=== PATIENT | female | born 1945 | race Hispanic/Latino ===

== ENCOUNTER 2025-03-27 22:37 | Emergency (ER) | payer MEDICARE ==
[~2025-03-27] VITALS: Ht 162.6 cm; Wt 63.5 kg
[2025-03-27] MEDS ORDERED: SODIUM CHLORIDE 0.9% 1000ML 1,000 ML IV STA (23:18)
[2025-03-27] MEDS: METOPROLOL TARTRATE INJ 1 MG/ML VIAL IV SCH (23:53)
[2025-03-28 01:47] VITALS: PULSE 129; RESP 16; TEMP 97.6
[2025-03-28 01:59] VITALS: BP 156/99; PULSE 129; RESP 16; TEMP 98; O2SAT 99
[2025-03-31] MEDS ORDERED: REFRESH PLUS1 EACH (08:46)
[2025-03-31] MEDS ORDERED: SYSTANE COMPLE1.5 ML (08:46)
[2025-03-31] MEDS ORDERED: METFORMIN HCL500 MG PO (08:46)
[2025-03-31] MEDS ORDERED: DIGOXIN125 MCG PO (08:46)
[2025-03-31] MEDS ORDERED: ELIQUIS5 MG PO (08:46)
[2025-03-31] MEDS ORDERED: MAGNESIUM250 M2 PO (08:46)
[2025-03-31] MEDS ORDERED: METOPROLOL SUCC50 MG PO (08:46)
== END 2025-03-28 02:02 | disposition home or self-care (01) ==
LOC: FSED 22:41
DX: I48.92 Unspecified atrial flutter (principal); Z79.01 Long term (current) use of anticoagulants; R00.0 Tachycardia, unspecified; I48.91 Unspecified atrial fibrillation; E11.9 Type 2 diabetes mellitus without complications; I10 Essential (primary) hypertension
CPT/HCPCS: 71045; 80053; 81003; 83880; 84484; 85025; 93005 ×2; 96374; 96375; 96376; 99284; J7030

== ENCOUNTER 2025-04-04 08:09 | Inpatient (IN) | payer MEDICARE ==
[~2025-04-04] VITALS: Ht 162.6 cm; Wt 70.8 kg
[2025-04-04] VITALS (7 sets, daily range): BP systolic 117–158; BP diastolic 87–112; PULSE 72–147; RESP 16–23; TEMP 97.8; O2SAT 99–100
[~2025-04-04 08:09] MED LIST: DIGOXIN125 MCG PO; ELIQUIS5 MG PO; MAGNESIUM250 M2 PO; METFORMIN HCL500 MG PO; METOPROLOL SUCC50 MG PO; REFRESH PLUS1 EACH; SYSTANE COMPLE1.5 ML
[2025-04-04 08:44] LABS: BASOPHILS % 0.6 % (0.0-1.0); EOSINOPHILS % 0.8 % (0.0-6.0); LYMPHOCYTES % 19.2 % (18.0-39.1); MONOCYTES % 7.7 % (4.4-11.3); NEUTROPHILS % 71.5 % (38.7-80.0); RED CELL DISTRIBUTION WIDTH 13.6 % (11.7-14.4)
[2025-04-04] MEDS: SODIUM CHLORIDE 0.9% 500ML 500 ML IV ONE (08:51)
[2025-04-04] MEDS: DILTIAZEM HCL 5 MG/ML 5 ML VIAL IV STA (08:51)
[2025-04-04 08:58] LABS: INR 1.11
[2025-04-04 09:40] LABS: EST GLOMERULAR FILTRATION RATE 89.0 ML/MIN (>=60)
[2025-04-04] MEDS: DIGOXIN INJ 0.25 MG/ML 2 ML AMP IV ONE ×2 (12:03→13:55)
[2025-04-04] MEDS: MUPIROCIN 2% OINT 22 GM TUBE TOP SCH (19:41)
[2025-04-04] MEDS ORDERED: TEMAZEPAM 7.5 MG CAP PO PRN (19:45)
[2025-04-04] MEDS ORDERED: ONDANSETRON HCL INJ 2MG/ML 2ML 2 MG/ML VIAL IV PRN (19:45)
[2025-04-04] MEDS: ENOXAPARIN SOD INJ 60 MG/0.6 ML SYR SC SCH (20:54)
[2025-04-04] MEDS: METOPROLOL SUCCINATE 25 MG TAB XL PO SCH (22:02)
[2025-04-04] MEDS ORDERED: AMIODARONE 900MG 900 MG in Premix Bag 1 BAG IV ONE (23:15)
[2025-04-04] MEDS ORDERED: AMIODARONE HCL 150 MG/100 ML BAG IV ONE (23:15)
[2025-04-05] VITALS (60 sets, daily range): BP systolic 89–168; BP diastolic 45–127; PULSE 70–145; RESP 12–34; TEMP 97.6–97.9; O2SAT 85–100
[2025-04-05] MEDS: METOPROLOL TARTRATE INJ 1 MG/ML VIAL IV ONE ×2 (00:31→00:32)
[2025-04-05] MEDS: METOPROLOL TARTRATE INJ 1 MG/ML VIAL ONE (00:32)
[2025-04-05 05:17] LABS: BASOPHILS % 0.6 % (0.0-1.0); EOSINOPHILS % 1.2 % (0.0-6.0); LYMPHOCYTES % 23.4 % (18.0-39.1); MONOCYTES % 7.3 % (4.4-11.3); NEUTROPHILS % 67.3 % (38.7-80.0); RED CELL DISTRIBUTION WIDTH 13.4 % (11.7-14.4)
[2025-04-05 05:51] LABS: EST GLOMERULAR FILTRATION RATE 94.0 ML/MIN (>=60)
[2025-04-05 08:08] LABS: CHOL/HDL RATIO 2.1 (3.0-3.6); LDL CHOLESTEROL 61.0 MG/DL (60-130)
[2025-04-05] MEDS: METFORMIN HCL 500 MG TAB PO SCH (09:16)
[2025-04-05] MEDS ORDERED: CEFAZOLIN SODIUM 2 GM in SODIUM CHLORIDE 0.9% 100 ML IV PRN (15:00)
[2025-04-05] MEDS: ONDANSETRON HCL INJ 2MG/ML 2ML 2 MG/ML VIAL ONE (18:17)
[2025-04-05] MEDS: SODIUM CHLORIDE 0.9% 1000ML 2,000 ML ONE (18:18)
[2025-04-05] MEDS: Vancomycin IV 1 GM VIAL ONE (18:19)
[2025-04-05] MEDS: SODIUM BICARBONATE 8.4% SYRING 50 ML ONE (18:19)
[2025-04-05] MEDS: LIDOCAINE HCL 2% LOCAL 20 ML VIAL ONE (18:19)
[2025-04-05] MEDS: IOPAMIDOL 610MG/1ML 300 MG/ML VIAL IV ONE (18:19)
[2025-04-05] MEDS: SODIUM CHLORIDE 0.9% 100 ML ONE (18:20)
[2025-04-05] MEDS: CEFAZOLIN SODIUM 2 GM ONE (18:20)
[2025-04-05] MEDS: SODIUM CHLORIDE 0.9% 250ML 250 ML ONE (18:20)
[2025-04-05] MEDS: GENTAMICIN SULFATE 40 MG/ML 2 ML VIAL ONE (18:34)
[2025-04-05] MEDS: SODIUM CHLORIDE 0.9% 500ML 500 ML ONE (18:34)
[2025-04-05] MEDS: FENTANYL CITRATE/PF 100MCG/2 ML INJ ONE (18:34)
[2025-04-05] MEDS: MIDAZOLAM HCL 2 MG/2 ML VIAL ONE (18:35)
[2025-04-05] MEDS: METOPROLOL TARTRATE 25 MG TAB PO SCH (21:24)
[2025-04-05] MEDS: AMIODARONE HCL 200 MG TAB PO SCH (21:24)
[2025-04-06] VITALS (24 sets, daily range): BP systolic 94–140; BP diastolic 64–110; PULSE 55–138; RESP 11–31; TEMP 97.9–98.4; O2SAT 88–100
[2025-04-06] MEDS: METOPROLOL TARTRATE INJ 1 MG/ML VIAL IV PRN (01:55)
[2025-04-06 07:07] LABS: BASOPHILS % 0.3 % (0.0-1.0); EOSINOPHILS % 0.5 % (0.0-6.0); LYMPHOCYTES % 15.6 % (18.0-39.1); MONOCYTES % 8.7 % (4.4-11.3); NEUTROPHILS % 74.7 % (38.7-80.0); RED CELL DISTRIBUTION WIDTH 13.4 % (11.7-14.4)
[2025-04-06 07:29] LABS: EST GLOMERULAR FILTRATION RATE 92.0 ML/MIN (>=60)
[2025-04-06] MEDS: DOXYCYCLINE HYCLATE TABLET 100 MG TAB PO SCH (08:20)
[2025-04-06] MEDS: MAGNESIUM OXIDE 400 MG TAB PO SCH (16:31)
[2025-04-07] VITALS (9 sets, daily range): BP systolic 99–135; BP diastolic 52–97; PULSE 58–123; RESP 9–24; TEMP 98–98.1; O2SAT 97–100
[2025-04-07] MEDS ORDERED: ELIQUIS5 MG PO (14:00)
[2025-04-07] MEDS ORDERED: MUPIROCIN22 GM TOP (14:00)
[2025-04-07] MEDS ORDERED: DOXYCYCLINE HY100 MG PO (14:00)
[2025-04-07] MEDS ORDERED: ONDANSETRON ODT4 MG PO (14:00)
[2025-04-07] MEDS ORDERED: MAGNESIUM250 M2 PO (14:00)
[2025-04-07] MEDS ORDERED: LOPRESSOR25 MG PO (14:41)
[2025-04-07] MEDS ORDERED: AMIODARONE HCL200 MG PO ×2 (14:44→14:45)
[2025-04-13] MEDS ORDERED: AMIODARONE HCL 200 MG TAB PO SCH (09:00)
== END 2025-04-07 16:21 | disposition home or self-care (01) | DRG 243 ==
LOC: ER 08:28 → ERHOLD 10:29 → ICU 22:23 → MED/SURG 04-07 08:26
PROVIDERS: ADMIT Internal Medicine; ATTEND Internal Medicine
PROC: 02H63JZ Insertion of Pacemaker Lead into Right Atrium, Percutaneous Approach (ICD-10-PCS; principal; 2025-04-05)
PROC: 0JH636Z Insertion of Pacemaker, Dual Chamber into Chest Subcutaneous Tissue and Fascia, Percutaneous Approach (ICD-10-PCS; 2025-04-05)
PROC: 02HK3JZ Insertion of Pacemaker Lead into Right Ventricle, Percutaneous Approach (ICD-10-PCS; 2025-04-05)
DX: I49.5 Sick sinus syndrome (principal); I48.92 Unspecified atrial flutter; E11.65 Type 2 diabetes mellitus with hyperglycemia; I10 Essential (primary) hypertension; I48.0 Paroxysmal atrial fibrillation; E83.42 Hypomagnesemia; M06.9 Rheumatoid arthritis, unspecified; Z79.01 Long term (current) use of anticoagulants; Z79.84 Long term (current) use of oral hypoglycemic drugs; Z90.710 Acquired absence of both cervix and uterus
CPT/HCPCS: 33208; 36415; 71045; 75820; 80048; 80053; 80061; 80162; 82550; 82948; 83735; 83880; 84484; 85025; 85610; 85730; 93005; 99152; 99153; 99252; 99284; C1769; C1785; C1898; J1160; J1580; J1650; J2003; J2250; J2405; J3373; J7030; J7040; J7050